=== PATIENT | female | born 1940 | race Caucasian/White ===

== ENCOUNTER 2016-04-05 17:20 | Emergency (ER) | payer MEDICARE, OTHER ==
[~2016-04-05] VITALS: Ht 152.4 cm; Wt 58.0 kg
[2016-04-05] VITALS (9 sets, daily range): BP systolic 122–227; BP diastolic 52–110; PULSE 16–80; RESP 16–18; TEMP 98.4; O2SAT 95–99
[~2016-04-05 17:20] MED LIST: AMOX500T PO; ASPI81CH37 CHEW; ATOR20TA15 PO; ESCI20TA PO; FAMO40TA PO; LEVO25TA4 PO; LOSA50TA PO; MEDR4PAK PO; METO50TA11 PO; OMEGCAP PO; PLAV75TA29 PO; PYRI1TAB5; ZETI10TA5 PO
[2016-04-05] MEDS ORDERED: SODIUM CHLORIDE 0.9% FLUSH 5 ML FLUSH IVF PRN (18:00)
--- NOTE | 2016-04-05 18:08 | PD ---
HPI Chief Complaint: Hypertension Time Seen by Provider: 17:57 Travel History International Travel<30 days: No Contact w/Intl Traveler<30days: No Traveled to known affect area: No History of Present Illness HPI Patient is a 75-year-old female with history of hypertension, hyperlipemia, presents to emergency room with complaints of uncontrolled blood pressure. Pt reports that she is on Losartan 75mg, metoprolol sucinnate 50mg, plavix 75mg and asa 81mg, reports that around Chava time, she felt as if her blood pressure was high as she has been having headaches. Pt reports that she thought that her blood pressure was high because she was using a heated mattress and heated blanket. Reports that she continued to have headaches yesterday and took her blood pressure at home - reports that her SBP was 250. Reports that she thought that her blood pressure cuff was broken and reports that she rechecked it today and it was still high. Pt came to ER to have her bp rechecked and to correlate it with her home blood pressure cuff. Patient does report nonspecific headache at this time. Patient denies vision changes. Patient denies nausea or vomiting. Patient denies chest pain or shortness of breath. Patient reports that she has been having problems with her blood pressure control since beginning March. Reports that when she was seen in the ER, her blood pressure was "very high" so her losartan was increased from 50mg to 75mg. Reports that she has not followed up with pcp since then as she had an appointment scheduled in April. PFSH Past Medical History Hx Anticoagulant Therapy: Yes (PLAVIX) Arthritis: Yes Asthma: No Autoimmune Disease: No Blood Disorders: No Anxiety: Yes Depression: No Heart Rhythm Problems: No Cancer: No Cardiac Catheterization: Yes Cardiovascular Problems: Yes High Cholesterol: Yes Chemotherapy: No Chest Pain: No Congestive Heart Failure: No COPD: Yes Cerebrovascular Accident: Yes (CVA) Coronary Artery Disease: Yes Diabetes: No Diminished Hearing: No Endocrine: Yes Gastrointestinal Disorders: Yes (stomach ulcers YEARS AGO) GERD: Yes Genitourinary: No Headaches: Yes Hiatal Hernia: No Heparin Induced Thrombocytopen: No Hypertension: Yes Immune Disorder: No Implanted Vascular Access Dvce: No Kidney Stones: No Musculoskeletal: Yes Neurologic: Yes Psychiatric: No Reproductive: No Respiratory: Yes (EMPYHSEMA) Immunizations Current: Yes Migraines: Yes Radiation Therapy: No Renal Failure: Yes (insufficency) Seizures: No Sickle Cell Disease: No Sleep Apnea: Yes (CPAP) Thyroid Disease: Yes (hypothyroidism) Ulcer: Yes Influenza Vaccination: Yes ?: Not Menopausal: Yes Past Surgical History Abdominal Surgery: Yes (GALLBLADDER REMOVED.) AICD: No Arteriovenous Shunt: No Body Medical Devices: BILE EYE LENS Cardiac Surgery: Yes (QUAD BIPASS 06) Cholecystectomy: Yes () Coronary Artery Bypass Graft: Yes (X 4 VESSELS IN 2005) Ear Surgery: No Endocrine Surgery: No Eye Surgery: Yes (CATARACTS REMOVED BILATERAL) Genitourinary Surgery: No Gynecologic Surgery: No Insulin Pump: No Joint Replacement: No Neurologic Surgery: No Oral Surgery: No Pacemaker: No Thoracic Surgery: No Other Surgery: Yes (PYLONIDAL CYST REMOVED.LEFT ENDARTERECTOMY, L carotid) Social History Alcohol Use: No Tobacco Use: Yes (6-7 cigarettes/day) Substance Use: No Allergies-Medications (Allergen,Severity, Reaction): Coded Allergies: CRESTOR (Verified Allergy, Severe, "MYOPATHY", 04/05/16) Codeine (Verified Adverse Reaction, Intermediate, NAUSEA/VOMITING, 04/05/16) Reported Meds & Prescriptions Reported Meds & Active Scripts Active Reported B6 Natural (Pyridoxine HCl) 100 Mg Tab [place]-3 Fish Oil/Vitamin (Fish Oil-Cholecalciferol) 1,000-1,000 Mg Cap 1 Cap PO DAILY Losartan (Losartan Potassium) 50 Mg Tab 75 Mg PO DAILY Levothyroxine (Levothyroxine Sodium) 25 Mcg Tab 25 Mcg PO DAILY Famotidine 40 Mg Tab 40 Mg PO HS Escitalopram (Escitalopram Oxalate) 20 Mg Tab 20 Mg PO DAILY Zetia (Ezetimibe) 10 Mg Tab 10 Mg PO DAILY Aspirin Low Dose (Aspirin) 81 Mg Chew 81 Mg CHEW DAILY Atorvastatin (Atorvastatin Calcium) 20 Mg Tab 20 Mg PO HS Plavix (Clopidogrel Bisulfate) 75 Mg Tab 75 Mg PO DAILY Metoprolol Succinate ER 24 HR (Metoprolol Succinate) 50 Mg Tab 50 Mg PO DAILY Review of Systems General / Constitutional: No: Fever Eyes: No: Visual changes HENT: Positive: Headaches Cardiovascular: No: Chest Pain or Discomfort Respiratory: No: Shortness of Breath Gastrointestinal: No: Abdominal Pain Genitourinary: No: Dysuria Musculoskeletal: No: Pain Skin: No Rash Neurologic: No: Weakness Psychiatric: No: Depression Endocrine: No: Polydipsia Hematologic/Lymphatic: No: Easy Bruising Physical Exam Narrative GENERAL: nad, nontoxic SKIN: Warm and dry. HEAD: Atraumatic. Normocephalic. EYES: Pupils equal and round. No scleral icterus. No injection or drainage. ENT: No nasal bleeding or discharge. Mucous membranes pink and moist. NECK: Trachea midline. No JVD. CARDIOVASCULAR: Regular rate and rhythm. No murmur appreciated. RESPIRATORY: No accessory muscle use. Clear to auscultation. Breath sounds equal bilaterally. GASTROINTESTINAL: Abdomen soft, non-tender, nondistended. Hepatic and splenic margins not palpable. MUSCULOSKELETAL: No obvious deformities. No clubbing. No cyanosis. No edema. NEUROLOGICAL: Awake and alert. No obvious cranial nerve deficits. Motor grossly within normal limits. Normal speech. Cranial nerve to 12 grossly intact with no deficits PSYCHIATRIC: Appropriate mood and affect; insight and judgment normal. Data Data Last Documented VS Vital Signs Date Time Temp Pulse Resp B/P Pulse Ox O2 Delivery O2 Flow Rate FiO2 04/05/16 18:42 77 18 122/52 95 Room Air 04/05/16 17:23 98.4 Orders Complete Blood Count With Diff (04/05/16 17:58) Comprehensive Metabolic Panel (04/05/16 17:58) Ct Brain W/O Iv Contrast(Rout) (04/05/16 17:58) Ecg Monitoring (04/05/16 17:58) Iv Access Insert/Monitor (04/05/16 17:58) Oximetry (04/05/16 17:58) Sodium Chloride 0.9% Flush (Ns Flush) (04/05/16 18:00) Electrocardiogram (04/05/16 ) Hydralazine Inj (Apresoline Inj) (04/05/16 18:15) Labs Laboratory Tests Test 04/05/16 18:00 White Blood Count 5.5 TH/MM3 Red Blood Count 4.22 MIL/MM3 Hemoglobin 13.4 GM/DL Hematocrit 39.4 % Mean Corpuscular Volume 93.4 FL Mean Corpuscular Hemoglobin 31.7 PG Mean Corpuscular Hemoglobin 33.9 % Concent Red Cell Distribution Width 13.1 % Platelet Count 168 TH/MM3 Mean Platelet Volume 7.6 FL Neutrophils (%) (Auto) 51.7 % Lymphocytes (%) (Auto) 36.3 % Monocytes (%) (Auto) 8.5 % Eosinophils (%) (Auto) 2.6 % Basophils (%) (Auto) 0.9 % Neutrophils # (Auto) 2.9 TH/MM3 Lymphocytes # (Auto) 2.0 TH/MM3 Monocytes # (Auto) 0.5 TH/MM3 Eosinophils # (Auto) 0.1 TH/MM3 Basophils # (Auto) 0.0 TH/MM3 CBC Comment DIFF FINAL Differential Comment Sodium Level 143 MEQ/L Potassium Level 3.6 MEQ/L Chloride Level 107 MEQ/L Carbon Dioxide Level 28.6 MEQ/L Anion Gap 7 MEQ/L Blood Urea Nitrogen 14 MG/DL Creatinine 0.99 MG/DL Estimat Glomerular Filtration 54 ML/MIN Rate Random Glucose 117 MG/DL Calcium Level 9.0 MG/DL Total Bilirubin 0.6 MG/DL Aspartate Amino Transf 17 U/L (AST/SGOT) Alanine Aminotransferase 19 U/L (ALT/SGPT) Alkaline Phosphatase 56 U/L Total Protein 6.9 GM/DL Albumin 3.3 GM/DL MDM Medical Decision Making Medical Screen Exam Complete: Yes Emergency Medical Condition: Yes Interpretation(s) ekg: nsr at 64bpm, qt/qtc: 422/429, no acute st seg changes, Vital Signs Date Time Temp Pulse Resp B/P Pulse Ox O2 Delivery O2 Flow Rate FiO2 04/05/16 18:09 80 18 227/86 95 Room Air 04/05/16 17:23 98.4 78 16 213/110 95 Differential Diagnosis uncontrolled hypertension, hypertensive urgency, intracranial hemorrhage, migraine Narrative Course Patient is a 75-year-old female presents to emergency room with complaint of symptomatic uncontrolled hypertension. Patient reports that her systolic blood pressure has been in the 250s, patient reports that she has been having headaches for the past few days. pt with bp 227/86, pt has been compliant with her medications, pt with headache at this time. will check ct of head as she is on plavix and asa and is complaining of headache with elevated bp. labs ordered to evaluate for end organ damage patient signed out to care of night physician Falguni Cole DO Apr 05, 2016 18:08
[2016-04-05 18:15] LABS: AUTOMATED NEUTROPHIL # 2.9 TH/MM3 (1.8-7.7); BASOPHIL % 0.9 % (0.0-2.0); EOSINOPHIL # 0.1 TH/MM3 (0-0.4); EOSINOPHIL % 2.6 % (0.0-4.0); HEMATOCRIT 39.4 % (35.0-46.0); HEMO FLAGS DIFF FINAL; LYMPH % 36.3 % (9.0-44.0); MEAN CELL VOLUME 93.4 FL (80.0-100.0); MEAN CORPUSCULAR HEMOGLOBIN 31.7 PG (27.0-34.0); MEAN CORPUSCULAR HGB CONC 33.9 % (32.0-36.0); MONO % 8.5 % (0.0-8.0); NEUT % 51.7 % (16.0-70.0); PLATELET COUNT 168 TH/MM3 (150-450); RED BLOOD COUNT 4.22 MIL/MM3 (4.00-5.30); RED CELL DISTRIBUTION WIDTH 13.1 % (11.6-17.2); WHITE BLOOD COUNT 5.5 TH/MM3 (4.0-11.0)
[2016-04-05] MEDS ORDERED: hydrALAZINE HCL 20 MG/ML VIAL IV PUSH ONE (18:15)
[2016-04-05 18:23] LABS: CHLORIDE 107 MEQ/L (98-107); POTASSIUM 3.6 MEQ/L (3.5-5.1); SODIUM (NA) 143 MEQ/L (136-145)
[2016-04-05 18:26] LABS: ANION GAP 7 MEQ/L (5-15); BICARBONATE 28.6 MEQ/L (21.0-32.0)
[2016-04-05 18:27] LABS: BLOOD UREA NITROGEN 14 MG/DL (7-18)
[2016-04-05 18:30] LABS: ALT (GPT) 19 U/L (10-53); AST (GOT) 17 U/L (15-37); GLOMERULAR FILTRATION RATE 54 ML/MIN (>89)
[2016-04-05 18:31] LABS: TOTAL BILIRUBIN ADULT 0.6 MG/DL (0.2-1.0)
[2016-04-05 18:33] LABS: ALKALINE PHOSPHATASE 56 U/L (45-117)
--- NOTE | 2016-04-05 19:15 | RADHPO ---
EXAM DATE/TIME: 04/05/2016 18:57 [facility] COMPARISON: CT BRAIN W/O CONTRAST, December 29, 2012, 4:32. INDICATIONS : Headache. RADIATION DOSE: 58.53 CTDIvol (mGy) MEDICAL HISTORY : Chronic obstructive pulmonary disease. Cardiovascular disease Hypertension. SURGICAL HISTORY : CABG Cholecystectomy. ENCOUNTER: Initial ACUITY: 1 week PAIN SCALE: 2/10 LOCATION: cranial TECHNIQUE: Multiple contiguous axial images were obtained of the head. Using automated exposure control and adj ustment of the mA and/or kV according to patient size, radiation dose was kept as low as reasonably a chievable to obtain optimal diagnostic quality images. FINDINGS: CEREBRUM: The ventricles are normal for age. No evidence of midline shift, mass lesion, hemorrhage or acute in farction. No extra-axial fluid collections are seen. POSTERIOR FOSSA: The cerebellum and brainstem are intact. The 4th ventricle is midline. The cerebellopontine angle i s unremarkable. EXTRACRANIAL: Mucoperiosteal thickening and debris seen in the visualized portions of the left maxillary air cell. Mastoid air cells are clear. SKULL: The calvaria is intact. No evidence of skull fracture. CONCLUSION: 1. No acute intracranial abnormality. 2. Left maxillary sinus disease. Santana Beebe MD on April 05, 2016 at 19:12 Board Certified Radiologist. This report was verified electronically.
[2016-04-05 19:30] LABS: BLOOD, URINE NEG (NEG); GLUCOSE,URINE NEG (NEG); KETONE, URINE NEG (NEG); NITRITE,URINE NEG (NEG)
[2016-04-05 19:40] LABS: METHOD OF COLLECTION CLEAN CATCH; URINE COLOR YELLOW (YELLW/STRAW)
[2016-04-05 19:43] LABS: MUCUS URINE OCC /lpf (OCC); WBC, URINE 0-2 /hpf (0-5)
[2016-04-05 19:44] LABS: BACTERIA, URINE OCC /hpf; COMMENT (UR) CULT NOT INDICATED; CULTURE IF INDICATED CULT NOT INDICATED; RBC, URINE 0-3 /hpf (0-3)
--- NOTE | 2016-04-05 19:52 | PD ---
Physical Exam Date Seen by Provider: Apr 05, 2016 Time Seen by Provider: 19:38 Narrative accepted in transfer of care from Dr Cole Data Data Last Documented VS Vital Signs Date Time Temp Pulse Resp B/P Pulse Ox O2 Delivery O2 Flow Rate FiO2 04/05/16 21:13 77 18 186/78 97 Room Air 04/05/16 17:23 98.4 Orders Complete Blood Count With Diff (04/05/16 17:58) Comprehensive Metabolic Panel (04/05/16 17:58) Ct Brain W/O Iv Contrast(Rout) (04/05/16 17:58) Ecg Monitoring (04/05/16 17:58) Iv Access Insert/Monitor (04/05/16 17:58) Oximetry (04/05/16 17:58) Sodium Chloride 0.9% Flush (Ns Flush) (04/05/16 18:00) Electrocardiogram (04/05/16 ) Hydralazine Inj (Apresoline Inj) (04/05/16 18:15) Urinalysis - C+S If Indicated (04/05/16 19:00) Acetaminophen (Tylenol) (04/05/16 20:00) Clonidine (Catapres) (04/05/16 20:45) Labs Laboratory Tests Test 04/05/16 04/05/16 18:00 19:15 White Blood Count 5.5 TH/MM3 Red Blood Count 4.22 MIL/MM3 Hemoglobin 13.4 GM/DL Hematocrit 39.4 % Mean Corpuscular Volume 93.4 FL Mean Corpuscular Hemoglobin 31.7 PG Mean Corpuscular Hemoglobin 33.9 % Concent Red Cell Distribution Width 13.1 % Platelet Count 168 TH/MM3 Mean Platelet Volume 7.6 FL Neutrophils (%) (Auto) 51.7 % Lymphocytes (%) (Auto) 36.3 % Monocytes (%) (Auto) 8.5 % Eosinophils (%) (Auto) 2.6 % Basophils (%) (Auto) 0.9 % Neutrophils # (Auto) 2.9 TH/MM3 Lymphocytes # (Auto) 2.0 TH/MM3 Monocytes # (Auto) 0.5 TH/MM3 Eosinophils # (Auto) 0.1 TH/MM3 Basophils # (Auto) 0.0 TH/MM3 CBC Comment DIFF FINAL Differential Comment Sodium Level 143 MEQ/L Potassium Level 3.6 MEQ/L Chloride Level 107 MEQ/L Carbon Dioxide Level 28.6 MEQ/L Anion Gap 7 MEQ/L Blood Urea Nitrogen 14 MG/DL Creatinine 0.99 MG/DL Estimat Glomerular Filtration 54 ML/MIN Rate Random Glucose 117 MG/DL Calcium Level 9.0 MG/DL Total Bilirubin 0.6 MG/DL Aspartate Amino Transf 17 U/L (AST/SGOT) Alanine Aminotransferase 19 U/L (ALT/SGPT) Alkaline Phosphatase 56 U/L Total Protein 6.9 GM/DL Albumin 3.3 GM/DL Urine Collection Type CLEAN CATCH Urine Color YELLOW Urine Turbidity SLIGHT Urine pH 6.0 Urine Specific [place] 1.017 Urine Protein 30 mg/dL Urine Glucose (UA) NEG mg/dL Urine Ketones NEG mg/dL Urine Occult Blood NEG Urine Nitrite NEG Urine Bilirubin NEG Urine Leukocyte Esterase NEG Urine RBC 0-3 /hpf Urine WBC 0-2 /hpf Urine Squamous Epithelial 6-8 /hpf Cells Urine Bacteria OCC /hpf Urine Mucus OCC /lpf Microscopic Urinalysis Comment CULT NOT INDICATED MDM Medical Record Reviewed: Yes Supervised Visit with GISELA: No Differential Diagnosis please refer to Dr Cole's dictation Narrative Course please refer to Dr Cole's dictation accepted in transfer of care for pending diagnostic results and patient disposition for possible obs admission per Dr Cole Patient remaining stable after hydralazine --- discussed with raffi LANZA MD declines OBS as appears to have stabilized in the ED; patient is aware of plan to be discharged to home with recommendation for close follow up with PCP -- patient reports she actually feels much improved and requests to go home, daughter at bedside. On repeat blood pressure value increase again a systolic 200 therefore administered clonidine 0.1 mg by mouth At 22:15 PM blood pressure has significant improved heart rate remains stable and patient tolerated medication well be given prescription for as needed clonidine and again patient is encouraged to follow-up with her primary care physician; again patient is desirous of being discharged to home. Diagnosis Primary Impression: Hypertension Additional Impressions: Cephalalgia H/O migraine Referrals: Primary Care Physician 1 day Patient Instructions: General Instructions Additional Instruction: Continue chronic medications as presently prescribed Follow-up with your primary care physician call office in a.m. for follow-up appointment this week Return to the emergency department for any concerns or change in condition Take new blood pressure medication as prescribed as needed based on blood pressure value parameters as provided Med/Other Pt SpecificInfo: Prescription(s) given Scripts Clonidine 0.1 Mg Tab0.1 Mg PO Q12HR PRN (SBP>180, DBP>95) #4 TAB Ref 0 Prov:Ning Valdez MD 04/05/16 Disposition: 01 DISCHARGE HOME Condition: Stable Ning Valdez MD Apr 05, 2016 19:52
[2016-04-05] MEDS ORDERED: ACETAMINOPHEN 325 MG TAB PO ONE (20:00)
[2016-04-05] MEDS ORDERED: cloNIDine HCL 0.1 MG TAB PO ONE (20:45)
[2016-04-05] MEDS ORDERED: CLON0.1T PO (22:14)
--- NOTE | 2016-04-06 17:55 | EKG ---
Date Performed: 04/05/2016 Time Performed: 18:03:32 PTAGE: 75 years EKG: Sinus rhythm Lateral T wave changes are nonspecific Since previous tracing, no significant change noted [place] e ECG PREVIOUS TRACING : 03/10/2016 08.18 DOCTOR: Layla Ortiz Interpretating Date/Time 04/06/2016 18:05:08
== END 2016-04-05 22:49 | disposition home or self-care (01) ==
LOC: PHED 17:20
DX: I10 Essential (primary) hypertension (principal); R51 Headache; J44.9 Chronic obstructive pulmonary disease, unspecified; Z95.1 Presence of aortocoronary bypass graft; Z79.01 Long term (current) use of anticoagulants
CPT/HCPCS: 70450; 80053; 81001; 85025; 93005; 96374; 99284; J0360